=== PATIENT | male | born 1960 | race Caucasian/White ===

== ENCOUNTER 2018-10-10 05:59 | Inpatient (IN) | payer BC ==
--- NOTE | 2018-10-09 15:49 | PCM.PREANE ---
Preanesthetic Assessment - Anesthesia/Transfusion/Family Hx Anesthesia History: Prior Anesthesia Without Reaction Family History of Anesthesia Reaction: No Transfusion History: No Prior Transfusion(s) Intubation History: Unknown - Review of Systems General: No Symptoms Pulmonary: No Symptoms (Smoker: 1-2 cigarettes/day times 20 years, patient also chews on occasion/ ETOH: occasionally) Cardiovascular: No Symptoms Gastrointestinal: No Symptoms (GERD-diet controlled) Neurological: No Symptoms (Back pain lower noted.) Other: Reports: None - Physical Assessment NPO Status Date: 10/09/18 NPO Status Time: 19:00 Pulse: 95 O2 Sat by Pulse Oximetry: 96 Respiratory Rate: 16 Blood Pressure: 132/90 Temperature: 36.8 C Height: 1.8 m Weight: 81 kg ASA Class: 2 Mental Status: Alert & Oriented x3 Airway Class: Mallampati = 2 Dentition: Reports: Normal Dentition, Caries Thyro-Mental Finger Breadths: 3 Mouth Opening Finger Breadths: 3 ROM/Head Extension: Full Lungs: Clear to Auscultation, Normal Respiratory Effort Cardiovascular: Regular Rate, Regular Rhythm, No Murmurs - Lab Values: Laboratory Last Values MRSA (PCR) Negative 10/05/18 12:29 All lab values reviewed and noted and within acceptable ranges to proceed with scheduled procedure. - Imaging/EKG Impressions: EKG: SR rate= 86, probable left ventricular hypertrophy, borderline t wave abnormalities in inferior leads. CXR: negative - Allergies Allergies/Adverse Reactions: Allergies Allergy/AdvReac Type Severity Reaction Status Date / Time No Known Allergies Allergy Verified 10/07/18 09:32 - Anesthesia Plan Pre-Op Medication Ordered: Other (PreOp meds: tylenol, lyrica, oxycodone all p.o. given in preop area at 0630) - Acknowledgements Anesthesia Type Planned: Spinal (Left adductor canal block under US guidance for post operative pain control requested by Dr. Wilkinson.) Pt an Appropriate Candidate for the Planned Anesthesia: Yes Alternatives and Risks of Anesthesia Discussed w Pt/Guardian: Yes Pt/Guardian Understands and Agrees with Anesthesia Plan: Yes PreAnesthesia Questionnaire HEENT History: Reports: None Cardiovascular History: Reports: None Respiratory History: Reports: None Gastrointestinal History: Genitourinary History: Reports: None AUTOMOTIVE SALES SPECIALIST History: Reports: None Musculoskeletal History: Reports: None Neurological History: Reports: None Psychiatric History: Reports: None Endocrine/Metabolic History: Reports: None Hematologic History: Reports: None Immunologic History: Reports: None Oncologic (Cancer) History: Reports: None Dermatologic History: Reports: Other (See Below) Other Dermatologic History: 52 stitches from dog attack in 2009 - Past Surgical History Head Surgeries/Procedures: Reports: None HEENT Surgical History: Reports: None Cardiovascular Surgical History: Reports: None Respiratory Surgical History: Reports: None GI Surgical History: Reports: Hernia Repair/Other Female Surgical History: Reports: None Male Surgical History: Reports: None Endocrine Surgical History: Reports: None Neurological Surgical History: Reports: None Musculoskeletal Surgical History: Reports: Other (See Below) Other Musculoskeletal Surgeries/Procedures:: right rotator cuff repair, left knee arthroscopy Oncologic Surgical History: Reports: None Dermatological Surgical History: Reports: None - SUBSTANCE USE Smoking Status *Q: Current Every Day Smoker Tobacco Use Within Last Twelve Months: Cigarettes, Snuff/Dip Recreational Drug Use History: No - HOME MEDS Home Medications: Home Meds Acetaminophen [Tylenol Arthritis] 650 mg PO Q4H PRN 10/07/18 [History] Cholecalciferol (Vitamin D3) [Vitamin D3] 5,000 unit PO DAILY 10/07/18 [History] - CURRENT (IN HOUSE) MEDS Current Meds: Current Medications Acetaminophen (Tylenol) 975 mg PO ONETIME [facility] Stop: 10/10/18 14:00 Lactated Ringer's (Ringers, Lactated) 1,000 mls @ 125 mls/hr IV ASDIRECTED MEENU Lidocaine/Sodium Bicarbonate (Buffered Lidocaine 1% In Ns 8.4%) 0.25 ml IDERM ONETIME PRN PRN Reason: Prior to IV Start Oxycodone HCl (Oxycontin) 10 mg PO ONETIME [facility] Stop: 10/10/18 14:00 Pregabalin (Lyrica) 50 mg PO ONETIME [facility] Stop: 10/10/18 14:00 Sodium Chloride (Saline Flush) 10 ml FLUSH ASDIRECTED PRN PRN Reason: Keep Vein Open Discontinued Medications Acetaminophen (Tylenol) 975 mg PO ONETIME [facility] Stop: 10/10/18 14:00 Oxycodone HCl (Oxycontin) 10 mg PO ONETIME [facility] Stop: 10/10/18 14:00 Pregabalin (Lyrica) 50 mg PO ONETIME [facility] Stop: 10/10/18 14:00
[~2018-10-10 05:59] MED LIST: EPINEPHrine 1 MG/ML SDV ONE; Ropivacaine 0.5% 5 MG/ML 30 ML SDV ONE
[2018-10-10] MEDS ORDERED: oxyCODONE ER 10 MG TAB.ER PO SCH ×2 (06:00→07:00)
[2018-10-10] MEDS ORDERED: Pregabalin 25 MG Cap PO SCH ×2 (06:00→07:00)
[2018-10-10] MEDS ORDERED: Acetaminophen 325 MG Tab PO SCH ×2 (06:00→07:00)
[2018-10-10] MEDS ORDERED: Lidocaine 1% 14 ML ONE (06:02)
[2018-10-10] MEDS ORDERED: fentaNYL 100 MCG/2 ML SDV ONE (06:02)
[2018-10-10] MEDS ORDERED: ceFAZolin 1 GM Vial ONE ×2 (06:02→06:33)
[2018-10-10] MEDS ORDERED: Ketorolac 30 MG/ML SDV ONE (06:02)
[2018-10-10] MEDS ORDERED: Propofol 200 MG/20 ML SDV ONE ×2 (06:02→07:43)
[2018-10-10] MEDS ORDERED: Ondansetron 4 MG/2 ML SDV ONE (06:02)
[2018-10-10] MEDS ORDERED: Bupivacaine 0.75% 30 ML SDV ONE (06:02)
[2018-10-10] MEDS ORDERED: Midazolam 1 MG/ML 2 ML SDV ONE (06:03)
[2018-10-10] MEDS ORDERED: Vancomycin 1 GM SDV ONE (06:29)
[2018-10-10] MEDS ORDERED: Bupivacaine 0.25% 30 ML SDV ONE (06:30)
[2018-10-10] MEDS ORDERED: Iodine/Sodium Iodide 2% Tincture 30 ML Bottle ONE (06:30)
[2018-10-10] MEDS ORDERED: Lidocaine 1%/Sod Bicarbonate in NS 8.4% 1 ML Syringe IDERM PRN (07:00)
[2018-10-10] MEDS ORDERED: Sodium Chloride 0.9% 10 ML Syringe FLUSH PRN (07:00)
[2018-10-10] MEDS: Lactated Ringers 1,000 ML IV SCH ×2 (07:01→11:43)
[2018-10-10] MEDS ORDERED: EPINEPHrine 1 MG/ML SDV ONE (07:18)
[2018-10-10] MEDS ORDERED: Bupivacaine 0.5% 30 ML SDV ONE (07:19)
[2018-10-10] MEDS ORDERED: Ropivacaine 0.5% 5 MG/ML 30 ML SDV ONE (07:19)
[2018-10-10] MEDS ORDERED: HYDROmorphone 0.5 MG/0.5 ML Syringe IVPUSH PRN (07:26)
[2018-10-10] MEDS ORDERED: ePHEDrine 50 MG/ML SDV IVPUSH PRN (07:26)
[2018-10-10] MEDS ORDERED: diphenhydrAMINE 50 MG/ML SDV IVPUSH PRN (07:26)
[2018-10-10] MEDS ORDERED: fentaNYL 100 MCG/2 ML SDV IVPUSH PRN (07:26)
[2018-10-10] MEDS ORDERED: Ondansetron 4 MG/2 ML SDV IVPUSH PRN ×2 (07:26→09:30)
[2018-10-10] MEDS ORDERED: Phenylephrine 1 MG in Sodium Chloride 0.9% 10 ML IV SCH (07:30)
[2018-10-10] MEDS ORDERED: Phenylephrine/Normal Saline 100 MCG/ML 10 ML Syringe ONE (07:31)
[2018-10-10] MEDS ORDERED: Morphine 8 MG, EPINEPHrine 0.3 MG, Cefuroxime 750 MG, Ketorolac 30 MG, Sodium Chloride ... ONE ×5 (07:35)
[2018-10-10] MEDS ORDERED: ePHEDrine/Normal Saline 25 MG/5 ML Syringe ONE (07:56)
[2018-10-10] MEDS ORDERED: Lactated Ringers 1,000 ML ONE (07:58)
--- NOTE | 2018-10-10 08:50 | PCM.POSTAN ---
POST ANESTHESIA ASSESSMENT - MENTAL STATUS Mental Status: Alert - VITAL SIGNS Pulse Rate: 83 SaO2: 94 Resp Rate: 12 Blood Pressure: 89/66 Temperature: 36.9 C - RESPIRATORY Respiratory Status: Respiratory Rate WNL, Airway Patent, O2 Saturation Stable - CARDIOVASCULAR CV Status: Pulse Rate WNL, Blood Pressure Stable - GASTROINTESTINAL GI Status: No Symptoms - POST OP HYDRATION Hydration Status: Adequate & Stable
--- NOTE | 2018-10-10 09:20 | PCM.SN ---
- Free Text/Narrative Note: Left selective femoral nerve block at the adductor canal for post-procedure pain control under US guidance requested by Dr. Wilkinson. Time Out: 853 Start: 853 End: 903 Chart reviewed. Consent signed. Questions answered. Appropriate monitors applied. Time out performed. Left mid-shaft femur identified with ultrasound, scanning medially of femur, the femoral artery in the adductor canal visualized , and the femoral nerve located laterally to the artery. The skin was prepped lateral to the ultrasound probe with chlorahexadine times two. The 21ga 4 insulated block needle was inserted under direct ultrasound guidance into the adductor canal. 25mL of 0.5% ropivacaine with 1:200,000 epinephrine was injected circumferentially around the nerve with intermittent negative aspiration noted. Patient tolerated the procedure well. Sterile technique noted along with sterile gloves, mask, and sterile probe cover. See picture on progress note and vital signs on nurses notes. Block completed in PACU. [place] CRNA
[2018-10-10] MEDS ORDERED: Naloxone 0.4 MG/ML SDV IVPUSH PRN (09:30)
[2018-10-10] MEDS ORDERED: Sennosides 8.6 MG Tab PO PRN (09:30)
[2018-10-10] MEDS ORDERED: Magnesium Hydroxide 400 MG/5 ML Susp 30 ML Cup PO PRN (09:30)
[2018-10-10] MEDS ORDERED: Morphine 2 MG/ML Syringe IVPUSH PRN (09:30)
[2018-10-10] MEDS ORDERED: Bisacodyl 5 MG Tab PO PRN (09:30)
--- NOTE | 2018-10-10 09:33 | CR ---
Left knee: Two views of the left knee were obtained. Comparison: No previous study. Knee prosthesis is seen which appears satisfactory in alignment. Soft tissue air is seen from the surgical procedure. No acute bony abnormality is seen. Impression: 1. Satisfactory postop radiographic appearance of recently placed left knee prosthesis. Diagnostic code #2
[2018-10-10] MEDS: Ketorolac 15 MG/ML SDV IVPUSH PRN ×2 (12:48→18:50)
--- NOTE | 2018-10-10 12:51 | PCM.CONS ---
H&P History of Present Illness - General Date of Service: 10/10/18 Admit Problem/Dx: Admission Diagnosis/Problem Admission Diagnosis/Problem Osteoarthritis of knee Source of Information: Patient History Limitations: Reports: No Limitations - History of Present Illness Initial Comments - Free Text/Narative: Jordan is a 58 yo male patient of Dr. Wilkinson who is post-operative day 0 of L TKA. Hospital medicine was consulted for post-operative medical care. At this time he is stable. Pain is controlled. He denies any chest pain, shortness of breath, palpitations, nausea, or vomiting. He carries a history of: GERD. He smokes 1-2 cigarettes/day x20 years, patient also chews on occasion. He is a full code. Left Knee Pain Score (Numeric/FACES): 7 - Related Data Allergies/Adverse Reactions: Allergies Allergy/AdvReac Type Severity Reaction Status Date / Time No Known Allergies Allergy Verified 10/10/18 10:19 Home Medications: Home Meds Cholecalciferol (Vitamin D3) [Vitamin D3] 5,000 unit PO DAILY 10/07/18 [History] Acetaminophen/oxyCODONE [Percocet 325-5 MG] 1 - 2 tab PO Q6H PRN #60 tablet [Rx] Aspirin [Ecotrin] 325 mg PO BID #84 tab.ec 10/10/18 [Rx] Bisacodyl [Dulcolax] 5 mg PO DAILY PRN tablet 10/10/18 [Rx] Cyclobenzaprine [Flexeril] 10 mg PO TID PRN #40 tablet 10/10/18 [Rx] Docusate Sodium [Colace] 100 mg PO BID cap 10/10/18 [Rx] Famotidine [Pepcid] 20 mg PO Q12H tablet 10/10/18 [Rx] Magnesium Hydroxide [Milk of Magnesia] 30 ml PO BID PRN cup 10/10/18 [Rx] Nicotine [Habitrol] 7 mg TRDERM DAILY patch 10/10/18 [Rx] Remove Patch 0 ea TRDERM DAILY each 10/10/18 [Rx] Sennosides [Senna] 8.6 mg PO BID PRN tablet 10/10/18 [Rx] Past Medical History HEENT History: Reports: None Cardiovascular History: Reports: None Respiratory History: Reports: None Gastrointestinal History: Genitourinary History: Reports: None [employer]ER History: Reports: None Musculoskeletal History: Reports: None Neurological History: Reports: None Psychiatric History: Reports: None Endocrine/Metabolic History: Reports: None Hematologic History: Reports: None Immunologic History: Reports: None Oncologic (Cancer) History: Reports: None Dermatologic History: Reports: Other (See Below) Other Dermatologic History: 52 stitches from dog attack in 2010 - Past Surgical History Head Surgeries/Procedures: Reports: None HEENT Surgical History: Reports: None Cardiovascular Surgical History: Reports: None Respiratory Surgical History: Reports: None GI Surgical History: Reports: Hernia Repair/Other Male Surgical History: Reports: None Endocrine Surgical History: Reports: None Neurological Surgical History: Reports: None Musculoskeletal Surgical History: Reports: Other (See Below) Other Musculoskeletal Surgeries/Procedures:: right rotator cuff repair, left knee arthroscopy Oncologic Surgical History: Reports: None Dermatological Surgical History: Reports: None Social & Family History - Family History Family Medical History: Noncontributory - Tobacco Use Smoking Status *Q: Current Every Day Smoker Years of Tobacco use: 20 Packs/Tins Daily: 0.5 Used Tobacco, but Quit: No Tobacco Use Comment: patient states he smokes and chews and smokes a "little bit " in the morning and afternoon Second Hand Smoke Exposure: No - Caffeine Use Caffeine Use: Reports: Coffee Other Caffeine Use: 2 cups/day - Alcohol Use Days Per Week of Alcohol Use: 7 Number of Drinks Per Day: 3 Total Drinks Per Week: 21 - Recreational Drug Use Recreational Drug Use: No H&P Review of Systems - Review of Systems: Review Of Systems: See Below General: Reports: No Symptoms. Denies: Fever, Chills HEENT: Reports: No Symptoms Pulmonary: Reports: No Symptoms. Denies: Shortness of Breath, Cough Cardiovascular: Reports: No Symptoms. Denies: Chest Pain Gastrointestinal: Reports: No Symptoms. Denies: Abdominal Pain, Diarrhea, Nausea, Vomiting Genitourinary: Reports: No Symptoms. Denies: Dysuria, Frequency, Burning, Pain , Urgency Musculoskeletal: Reports: No Symptoms Skin: Reports: No Symptoms Psychiatric: Reports: No Symptoms Neurological: Reports: No Symptoms Hematologic/Lymphatic: Reports: No Symptoms Immunologic: Reports: No Symptoms Exam - Exam Exam: See Below - Vital Signs Vital Signs: Last Vital Signs Temp 98.3 F 10/10/18 09:30 Pulse 69 10/10/18 11:01 Resp 18 10/10/18 09:30 BP 88/65 L 10/10/18 11:01 Pulse Ox 95 10/10/18 11:01 Weight: 178 lb 9.191 oz - Exam Quality Assessment: DVT Prophylaxis General: Alert, Oriented, Cooperative, Mild Distress HEENT: Conjunctiva Clear, EACs Clear, EOMI, Hearing Intact, Mucosa Moist & [place] , Nares Patent, Normal Nasal Septum, Posterior Pharynx Clear, PERRLA Neck: Supple, Trachea Midline, 2 Lungs: Clear to Auscultation, Normal Respiratory Effort Cardiovascular: Regular Rate, Regular Rhythm GI/Abdominal Exam: Normal Bowel Sounds, Soft, Non-Tender, No Organomegaly, No Distention, No Abnormal Bruit, No Mass, Pelvis Stable (Male) Exam: Deferred Rectal (Males) Exam: Deferred Back Exam: Normal Inspection Extremities: Normal Inspection, Non-Tender, No Pedal Edema, Normal Capillary Refill, Limited Range of Motion (s/p LTKA) Peripheral Pulses: 2+: Posterior Tibial (L), Posterior Tibial (R), Dorsalis Pedis (L), Dorsalis Pedis (R) Skin: Warm, Dry, Intact, Other (bandage dry and intact) Neurological: Cranial Nerves Intact (grossly), Strength Equal Bilateral Neuro Extensive - Mental Status: Alert, Oriented x3, Normal Mood/Affect, Normal Cognition Psychiatric: Alert, Normal Affect, Normal Mood Consult PN Assessment/Plan POD#: 0 (1) S/P total knee arthroplasty SNOMED Code(s): 0313935890786, [id number], 7696958705937 Code(s): Z96.659 - PRESENCE OF UNSPECIFIED ARTIFICIAL KNEE JOINT Priority: High Current Visit: Yes Qualifiers: Laterality: left Qualified Code(s): Z96.652 - Presence of left artificial knee joint Problem List Initiated/Reviewed/Updated: Yes Plan: I/P: Acute: S/P left total knee arthroplasty - post-operative day 0 -DVT prophylaxis and pain management per primary care team -PT/OT -IS/RT -Monitor oxygen saturation -Titrate oxygen as needed -Vital signs stable -Monitor labs Osteoarthritis of Knee -Pain management per primary care team Tobacco Dependence -He smokes 1-2 cigarettes/day x20 years, patient also chews on occasion. -Smoking cessation counseling given -Nicotine patch Chronic: GERD Plan: CM for discharge planning GI prophylaxis: Pepcid DVT/PE prophylaxis: ASA, AYAKA hose, SCD Home medications as indicated Other orders as listed above Routine AM labs He is a full code. Thank you for allowing us to participate in the care of this patient!
[2018-10-10] MEDS: Acetaminophen/oxyCODONE 325-5 MG Tab PO PRN ×3 (14:23→22:22)
[2018-10-10] MEDS: ceFAZolin 2 GM in Premix Bag 1 BAG IV SCH ×2 (14:24→22:23)
[2018-10-10] MEDS: Nicotine 7 MG/24 Hr Patch TRDERM SCH (14:38)
[2018-10-10] MEDS: Cyclobenzaprine 10 MG Tab PO PRN ×2 (15:25→22:22)
[2018-10-10] MEDS: Docusate Sodium 100 MG Cap PO SCH (20:06)
[2018-10-10] MEDS: Famotidine 20 MG Tab PO SCH (20:06)
[2018-10-11] MEDS: Acetaminophen/oxyCODONE 325-5 MG Tab PO PRN ×4 (02:32→13:53)
[2018-10-11] MEDS: Ketorolac 15 MG/ML SDV IVPUSH PRN (05:26)
[2018-10-11] MEDS: ceFAZolin 2 GM in Premix Bag 1 BAG IV SCH (06:24)
--- NOTE | 2018-10-11 06:46 | PCM.CONSN ---
- General Info Date of Service: 10/11/18 Admission Dx/Problem (Free Text): Admission Diagnosis/Problem Admission Diagnosis/Problem Osteoarthritis of knee Subjective Update: In to see Jacob. Is sitting up in a chair. He is overall feeling well today. Pain is 3-4/10 at its worst. He has been ambulating and working with PT. Incentive Spirometry. Urinating. No concerns from nursing. He will likely go home today pending primary team decision. Functional Status: Reports: Pain Controlled, Tolerating Diet, Ambulating, Urinating, Incentive Spirometry - Review of Systems General: Reports: No Symptoms. Denies: Fever, Chills HEENT: Reports: No Symptoms Pulmonary: Reports: No Symptoms. Denies: Shortness of Breath, Cough Cardiovascular: Reports: No Symptoms. Denies: Chest Pain Gastrointestinal: Reports: No Symptoms. Denies: Abdominal Pain, Diarrhea, Nausea, Vomiting Genitourinary: Reports: No Symptoms Musculoskeletal: Reports: Joint Pain (s/p L TKA) Skin: Reports: No Symptoms Neurological: Reports: No Symptoms Psychiatric: Reports: No Symptoms - Patient Data Vitals - Most Recent: Last Vital Signs Temp 99.3 F 10/11/18 02:25 Pulse 109 H 10/11/18 02:25 Resp 20 10/11/18 02:25 BP 136/71 10/11/18 02:25 Pulse Ox 97 10/11/18 02:25 Weight - Most Recent: 185 lb 6 oz I&O - Last 24 Hours: Intake & Output 10/10/18 10/10/18 10/11/18 14:59 22:59 06:59 Intake Total 740 1510 1375 Output Total 700 1650 Balance 740 810 -275 Lab Results Last 24 Hours: Laboratory Results - last 24 hr 10/11/18 Range/Units 05:30 WBC 6.55 (4.23-9.07) K/mm3 RBC 3.93 L (4.63-6.08) M/mm3 Hgb 11.3 L (13.7-17.5) gm/L Hct 34.8 L (40.1-51.0) % MCV 88.5 (79.0-92.2) fl MCH 28.8 (25.7-32.2) pg MCHC 32.5 (32.2-35.5) g/dl RDW Std Deviation 38.0 (35.1-43.9) fL Plt Count 376 H (163-337) K/mm3 MPV 10.0 (9.4-12.3) fl Med Orders - Current: Current Medications Aspirin (Ecotrin) 325 mg PO BID [facility] Bisacodyl (Dulcolax) 5 mg PO DAILY PRN PRN Reason: Constipation Cholecalciferol (Vitamin D3) 5,000 unit PO DAILY [facility] Cyclobenzaprine HCl (Flexeril) 10 mg PO TID PRN PRN Reason: Spasms Last Admin: 10/10/18 22:22 Dose: 10 mg Docusate Sodium (Colace) 100 mg PO BID [facility] Last Admin: 10/10/18 20:06 Dose: 100 mg Famotidine (Pepcid) 20 mg PO Q12H [facility] Last Admin: 10/10/18 20:06 Dose: 20 mg Cefazolin Sodium/Dextrose 2 gm (/ Premix) 50 mls @ 100 mls/hr IV Q8H [facility] Stop: 10/11/18 07:29 Last Admin: 10/11/18 06:24 Dose: 100 mls/hr Magnesium Hydroxide (Milk Of Magnesia) 30 ml PO BID PRN PRN Reason: Constipation Miscellaneous Information (Remove Patch) 0 ea TRDERM DAILY [facility] Morphine Sulfate (Morphine) 2 mg IVPUSH Q2H PRN PRN Reason: Breakthrough Pain Naloxone HCl (Narcan) 0.1 mg IVPUSH Q5M PRN PRN Reason: Oversedation Nicotine (Habitrol) 7 mg TRDERM DAILY [facility] Last Admin: 10/10/18 14:38 Dose: Not Given Ondansetron HCl (Zofran) 4 mg IVPUSH Q6H PRN PRN Reason: Nausea/Vomiting Oxycodone/Acetaminophen (Percocet 325-5 Mg) 1 - 2 tab PO Q4H PRN PRN Reason: Pain Last Admin: 10/11/18 06:27 Dose: 2 tab Senna (Senna) 8.6 mg PO BID PRN PRN Reason: Constipation Last Admin: 10/11/18 06:27 Dose: 8.6 mg Discontinued Medications Acetaminophen (Tylenol) 975 mg PO ONETIME [facility] Stop: 10/10/18 14:00 Acetaminophen (Tylenol) 975 mg PO ONETIME [facility] Stop: 10/10/18 14:00 Last Admin: 10/10/18 06:29 Dose: 975 mg Bupivacaine HCl (Sensorcaine-Mpf 0.75%) Confirm Administered Dose 30 ml .ROUTE .STK-MED ONE Stop: 10/10/18 06:03 Bupivacaine HCl (Marcaine 0.25%) Confirm Administered Dose 30 ml .ROUTE .STK- MED ONE Stop: 10/10/18 06:31 Last Admin: 10/10/18 08:14 Dose: 30 ml Bupivacaine HCl (Marcaine 0.5%) Confirm Administered Dose 30 ml .ROUTE .STK-MED ONE Stop: 10/10/18 07:20 Cefazolin Sodium (Ancef) Confirm Administered Dose 2 gm .ROUTE .STK-MED ONE Stop: 10/10/18 06:03 Last Admin: 10/10/18 08:09 Dose: 2 gm Cefazolin Sodium (Ancef) Confirm Administered Dose 2 gm .ROUTE .STK-MED ONE Stop: 10/10/18 06:34 Morphine Sulfate 8 mg/Epinephrine HCl 0.3 mg/Cefuroxime Sodium 750 mg/Ketorolac Tromethamine 30 mg/Sodium Chloride 27.9 ml 0 mg .XX ONETIME ONE Stop: 10/10/18 07:36 Last Admin: 10/10/18 08:13 Dose: 788.3 mg Diphenhydramine HCl (Benadryl) 25 mg IVPUSH Q6H PRN PRN Reason: pruritis Stop: 10/10/18 10:00 Ephedrine Sulfate (Ephedrine Sulfate) 5 mg IVPUSH ASDIRECTED PRN PRN Reason: Hypotension Stop: 10/10/18 10:00 Ephedrine Sulfate (Ephedrine In Ns) Confirm Administered Dose 25 mg .ROUTE .STK- MED ONE Stop: 10/10/18 07:57 Epinephrine HCl (Adrenalin) Confirm Administered Dose 1 mg .ROUTE .STK-MED ONE Stop: 10/10/18 05:33 Epinephrine HCl (Adrenalin) Confirm Administered Dose 1 mg .ROUTE .STK-MED ONE Stop: 10/10/18 07:19 Fentanyl (Sublimaze) Confirm Administered Dose 100 mcg .ROUTE .STK-MED ONE Stop: 10/10/18 06:03 Fentanyl (Sublimaze) 50 mcg IVPUSH Q5M PRN PRN Reason: Pain Stop: 10/10/18 10:00 Hydromorphone HCl (Dilaudid) 0.5 mg IVPUSH Q15M PRN PRN Reason: Pain (severe 7-10) Stop: 10/10/18 10:00 Lactated Ringer's (Ringers, Lactated) 1,000 mls @ 125 mls/hr IV ASDIRECTED MEENU Stop: 10/10/18 23:00 Last Admin: 10/10/18 11:43 Dose: 125 mls/hr Lidocaine HCl (Xylocaine-Mpf 1%) Confirm Administered Dose 14 mls @ as directed .ROUTE .STK-MED ONE Stop: 10/10/18 06:03 Phenylephrine HCl 1 mg/ Sodium (Chloride) 10.1 mls @ 1 mls/sec IV TITRATE MEENU; Protocol Stop: 10/10/18 10:00 Lactated Ringer's (Ringers, Lactated) Confirm Administered Dose 1,000 mls @ as directed .ROUTE .STK-MED ONE Stop: 10/10/18 07:59 Iodine (Iodine 2% Mild Tincture) Confirm Administered Dose 30 ml .ROUTE .STK- MED ONE Stop: 10/10/18 06:31 Last Admin: 10/10/18 08:06 Dose: 18 ml Ketorolac Tromethamine (Toradol) Confirm Administered Dose 30 mg .ROUTE .STK- MED ONE Stop: 10/10/18 06:03 Ketorolac Tromethamine (Toradol) 15 mg IVPUSH Q6H PRN PRN Reason: Pain Last Admin: 10/11/18 05:26 Dose: 15 mg Lidocaine/Sodium Bicarbonate (Buffered Lidocaine 1% In Ns 8.4%) 0.25 ml IDERM ONETIME PRN PRN Reason: Prior to IV Start Stop: 10/10/18 18:00 Last Admin: 10/10/18 06:45 Dose: 0.25 ml Midazolam HCl (Versed 1 Mg/Ml) Confirm Administered Dose 2 mg .ROUTE .STK-MED ONE Stop: 10/10/18 06:04 Ondansetron HCl (Zofran) Confirm Administered Dose 4 mg .ROUTE .STK-MED ONE Stop: 10/10/18 06:03 Ondansetron HCl (Zofran) 4 mg IVPUSH ONETIME PRN PRN Reason: Nausea/Vomiting Stop: 10/10/18 10:00 Oxycodone HCl (Oxycontin) 10 mg PO ONETIME [facility] Stop: 10/10/18 14:00 Oxycodone HCl (Oxycontin) 10 mg PO ONETIME [facility] Stop: 10/10/18 14:00 Last Admin: 10/10/18 06:28 Dose: 10 mg Phenylephrine HCl (Phenylephrine In Ns 100 Mcg/Ml) Confirm Administered Dose 1 mg .ROUTE .STK-MED ONE Stop: 10/10/18 07:32 Pregabalin (Lyrica) 50 mg PO ONETIME [facility] Stop: 10/10/18 14:00 Pregabalin (Lyrica) 50 mg PO ONETIME [facility] Stop: 10/10/18 14:00 Last Admin: 10/10/18 06:27 Dose: 50 mg Propofol (Diprivan 20 Ml) Confirm Administered Dose 400 mg .ROUTE .STK-MED ONE Stop: 10/10/18 06:03 Propofol (Diprivan 20 Ml) Confirm Administered Dose 200 mg .ROUTE .STK-MED ONE Stop: 10/10/18 07:44 Ropivacaine (Naropin 0.5%) Confirm Administered Dose 30 ml .ROUTE .STK-MED ONE Stop: 10/10/18 05:33 Ropivacaine (Naropin 0.5%) Confirm Administered Dose 30 ml .ROUTE .STK-MED ONE Stop: 10/10/18 07:20 Sodium Chloride (Saline Flush) 10 ml FLUSH ASDIRECTED PRN PRN Reason: Keep Vein Open Stop: 10/10/18 18:00 Tranexamic Acid (Cyklokapron) Confirm Administered Dose 1,000 mg .ROUTE .STK- MED ONE Stop: 10/10/18 06:30 Last Admin: 10/10/18 08:25 Dose: 1,000 mg Vancomycin HCl (Vancomycin) Confirm Administered Dose 1 gm .ROUTE .STK-MED ONE Stop: 10/10/18 06:30 Last Admin: 10/10/18 08:16 Dose: 1 gm - Exam Quality Assessment: DVT Prophylaxis General: Alert, Oriented, Cooperative, No Acute Distress HEENT: Pupils Equal, Pupils Reactive, EOMI, Mucous Membr. Moist/[place] Neck: Supple Lungs: Clear to Auscultation, Normal Respiratory Effort Cardiovascular: Regular Rate, Regular Rhythm GI/Abdominal Exam: Normal Bowel Sounds, Soft, Non-Tender, No Organomegaly, No Distention, No Abnormal Bruit, No Mass, Pelvis Stable (Male) Exam: Deferred Back Exam: Normal Inspection Extremities: Normal Inspection, Non-Tender, No Pedal Edema, Normal Capillary Refill, Limited Range of Motion (s/p LTKA) Peripheral Pulses: 2+: Posterior Tibial (L), Posterior Tibial (R), Dorsalis Pedis (L), Dorsalis Pedis (R) Skin: Warm, Dry, Intact Wound/Incisions: Healing Well, Dressing Dry and Intact, No Drainage Neurological: No New Focal Deficit Psy/Mental Status: Alert, Normal Affect, Normal Mood Consult PN Assessment/Plan POD#: 1 (1) S/P total knee arthroplasty SNOMED Code(s): 6764837215876, [id number], [id number] Code(s): Z96.659 - PRESENCE OF UNSPECIFIED ARTIFICIAL KNEE JOINT Priority: High Current Visit: Yes Qualifiers: Laterality: left Qualified Code(s): Z96.652 - Presence of left artificial knee joint Problem List Initiated/Reviewed/Updated: Yes My Orders Last 24 Hours: My Active Orders 10/10/18 13:00 Nicotine [Habitrol] 7 mg TRDERM DAILY 10/11/18 09:00 Remove Patch 0 ea TRDERM DAILY Plan: I/P: Acute: S/P left total knee arthroplasty - post-operative day 1 -DVT prophylaxis and pain management per primary care team -PT/OT -IS/RT -Monitor oxygen saturation -Titrate oxygen as needed -Vital signs stable -Monitor labs Hgb 11.3 Osteoarthritis of Knee -Pain management per primary care team Tobacco Dependence -He smokes 1-2 cigarettes/day x20 years, patient also chews on occasion. -Smoking cessation counseling given -Nicotine patch Chronic: GERD Plan: CM for discharge planning GI prophylaxis: Pepcid DVT/PE prophylaxis: ASA, AYAKA hose, SCD Home medications as indicated Other orders as listed above Routine AM labs He is a full code. Thank you for allowing us to participate in the care of this patient! From a Hospitalist standpoint, the pt is ready for discharge pending primary team decision.
--- NOTE | 2018-10-11 08:10 | PCM.SURGPN ---
- General Info Date of Service: 10/11/18 POD#: 1 Functional Status: Reports: Pain Controlled, Tolerating Diet, Ambulating, Urinating, Incentive Spirometry - Review of Systems Musculoskeletal: Reports: Other (The pt states he was walking in the halls this morning.) - Patient Data Vitals - Most Recent: Last Vital Signs Temp 98.1 F 10/11/18 07:39 Pulse 104 H 10/11/18 07:39 Resp 16 10/11/18 07:39 BP 114/75 10/11/18 07:39 Pulse Ox 96 10/11/18 07:39 Weight - Most Recent: 185 lb 6 oz I&O - Last 24 Hours: Intake & Output 10/10/18 10/11/18 10/11/18 22:59 06:59 14:59 Intake Total 1510 1375 Output Total 700 1650 Balance 810 -275 Lab Results Last 24 Hrs: Laboratory Results - last 24 hr 10/11/18 10/11/18 Range/Units 05:30 05:30 WBC 6.55 (4.23-9.07) K/mm3 RBC 3.93 L (4.63-6.08) M/mm3 Hgb 11.3 L (13.7-17.5) gm/L Hct 34.8 L (40.1-51.0) % MCV 88.5 (79.0-92.2) fl MCH 28.8 (25.7-32.2) pg MCHC 32.5 (32.2-35.5) g/dl RDW Std Deviation 38.0 (35.1-43.9) fL Plt Count 376 H (163-337) K/mm3 MPV 10.0 (9.4-12.3) fl Sodium 134 L (136-145) mEq/L Potassium 4.2 (3.5-5.1) mEq/L Chloride 99 (98-107) mEq/L Carbon Dioxide 28 (21-32) mEq/L Anion Gap 11.2 (5-15) BUN 15 (7-18) mg/dL Creatinine 1.0 (0.7-1.3) mg/dL Est Cr Clr Drug Dosing 84.71 mL/min Estimated GFR (MDRD) > 60 (>60) mL/min BUN/Creatinine Ratio 15.0 (14-18) Glucose 124 H (74-106) mg/dL Calcium 8.8 (8.5-10.1) mg/dL Total Bilirubin 0.7 (0.2-1.0) mg/dL AST 11 L (15-37) U/L ALT 21 (16-63) U/L Alkaline Phosphatase 52 (46-116) U/L Total Protein 6.1 L (6.4-8.2) g/dl Albumin 2.7 L (3.4-5.0) g/dl Globulin 3.4 gm/dL Albumin/Globulin Ratio 0.8 L (1-2) Med Orders - Current: Current Medications Aspirin (Ecotrin) 325 mg PO BID [facility] Bisacodyl (Dulcolax) 5 mg PO DAILY PRN PRN Reason: Constipation Cholecalciferol (Vitamin D3) 5,000 unit PO DAILY [facility] Cyclobenzaprine HCl (Flexeril) 10 mg PO TID PRN PRN Reason: Spasms Last Admin: 10/10/18 22:22 Dose: 10 mg Docusate Sodium (Colace) 100 mg PO BID [facility] Last Admin: 10/10/18 20:06 Dose: 100 mg Famotidine (Pepcid) 20 mg PO Q12H [facility] Last Admin: 10/10/18 20:06 Dose: 20 mg Magnesium Hydroxide (Milk Of Magnesia) 30 ml PO BID PRN PRN Reason: Constipation Miscellaneous Information (Remove Patch) 0 ea TRDERM DAILY [facility] Morphine Sulfate (Morphine) 2 mg IVPUSH Q2H PRN PRN Reason: Breakthrough Pain Naloxone HCl (Narcan) 0.1 mg IVPUSH Q5M PRN PRN Reason: Oversedation Nicotine (Habitrol) 7 mg TRDERM DAILY [facility] Last Admin: 10/10/18 14:38 Dose: Not Given Ondansetron HCl (Zofran) 4 mg IVPUSH Q6H PRN PRN Reason: Nausea/Vomiting Oxycodone/Acetaminophen (Percocet 325-5 Mg) 1 - 2 tab PO Q4H PRN PRN Reason: Pain Last Admin: 10/11/18 06:27 Dose: 2 tab Senna (Senna) 8.6 mg PO BID PRN PRN Reason: Constipation Last Admin: 10/11/18 06:27 Dose: 8.6 mg Discontinued Medications Acetaminophen (Tylenol) 975 mg PO ONETIME [facility] Stop: 10/10/18 14:00 Acetaminophen (Tylenol) 975 mg PO ONETIME [facility] Stop: 10/10/18 14:00 Last Admin: 10/10/18 06:29 Dose: 975 mg Bupivacaine HCl (Sensorcaine-Mpf 0.75%) Confirm Administered Dose 30 ml .ROUTE .STK-MED ONE Stop: 10/10/18 06:03 Bupivacaine HCl (Marcaine 0.25%) Confirm Administered Dose 30 ml .ROUTE .STK- MED ONE Stop: 10/10/18 06:31 Last Admin: 10/10/18 08:14 Dose: 30 ml Bupivacaine HCl (Marcaine 0.5%) Confirm Administered Dose 30 ml .ROUTE .STK-MED ONE Stop: 10/10/18 07:20 Cefazolin Sodium (Ancef) Confirm Administered Dose 2 gm .ROUTE .STK-MED ONE Stop: 10/10/18 06:03 Last Admin: 10/10/18 08:09 Dose: 2 gm Cefazolin Sodium (Ancef) Confirm Administered Dose 2 gm .ROUTE .STK-MED ONE Stop: 10/10/18 06:34 Morphine Sulfate 8 mg/Epinephrine HCl 0.3 mg/Cefuroxime Sodium 750 mg/Ketorolac Tromethamine 30 mg/Sodium Chloride 27.9 ml 0 mg .XX ONETIME ONE Stop: 10/10/18 07:36 Last Admin: 10/10/18 08:13 Dose: 788.3 mg Diphenhydramine HCl (Benadryl) 25 mg IVPUSH Q6H PRN PRN Reason: pruritis Stop: 10/10/18 10:00 Ephedrine Sulfate (Ephedrine Sulfate) 5 mg IVPUSH ASDIRECTED PRN PRN Reason: Hypotension Stop: 10/10/18 10:00 Ephedrine Sulfate (Ephedrine In Ns) Confirm Administered Dose 25 mg .ROUTE .STK- MED ONE Stop: 10/10/18 07:57 Epinephrine HCl (Adrenalin) Confirm Administered Dose 1 mg .ROUTE .STK-MED ONE Stop: 10/10/18 05:33 Epinephrine HCl (Adrenalin) Confirm Administered Dose 1 mg .ROUTE .STK-MED ONE Stop: 10/10/18 07:19 Fentanyl (Sublimaze) Confirm Administered Dose 100 mcg .ROUTE .STK-MED ONE Stop: 10/10/18 06:03 Fentanyl (Sublimaze) 50 mcg IVPUSH Q5M PRN PRN Reason: Pain Stop: 10/10/18 10:00 Hydromorphone HCl (Dilaudid) 0.5 mg IVPUSH Q15M PRN PRN Reason: Pain (severe 7-10) Stop: 10/10/18 10:00 Lactated Ringer's (Ringers, Lactated) 1,000 mls @ 125 mls/hr IV ASDIRECTED [facility] Stop: 10/10/18 23:00 Last Admin: 10/10/18 11:43 Dose: 125 mls/hr Lidocaine HCl (Xylocaine-Mpf 1%) Confirm Administered Dose 14 mls @ as directed .ROUTE .STK-MED ONE Stop: 10/10/18 06:03 Cefazolin Sodium/Dextrose 2 gm (/ Premix) 50 mls @ 100 mls/hr IV Q8H [facility] Stop: 10/11/18 07:29 Last Admin: 10/11/18 06:24 Dose: 100 mls/hr Phenylephrine HCl 1 mg/ Sodium (Chloride) 10.1 mls @ 1 mls/sec IV TITRATE [facility]; Protocol Stop: 10/10/18 10:00 Lactated Ringer's (Ringers, Lactated) Confirm Administered Dose 1,000 mls @ as directed .ROUTE .STK-MED ONE Stop: 10/10/18 07:59 Iodine (Iodine 2% Mild Tincture) Confirm Administered Dose 30 ml .ROUTE .STK- MED ONE Stop: 10/10/18 06:31 Last Admin: 10/10/18 08:06 Dose: 18 ml Ketorolac Tromethamine (Toradol) Confirm Administered Dose 30 mg .ROUTE .STK- MED ONE Stop: 10/10/18 06:03 Ketorolac Tromethamine (Toradol) 15 mg IVPUSH Q6H PRN PRN Reason: Pain Last Admin: 10/11/18 05:26 Dose: 15 mg Lidocaine/Sodium Bicarbonate (Buffered Lidocaine 1% In Ns 8.4%) 0.25 ml IDERM ONETIME PRN PRN Reason: Prior to IV Start Stop: 10/10/18 18:00 Last Admin: 10/10/18 06:45 Dose: 0.25 ml Midazolam HCl (Versed 1 Mg/Ml) Confirm Administered Dose 2 mg .ROUTE .ST-MED ONE Stop: 10/10/18 06:04 Ondansetron HCl (Zofran) Confirm Administered Dose 4 mg .ROUTE .ST-MED ONE Stop: 10/10/18 06:03 Ondansetron HCl (Zofran) 4 mg IVPUSH ONETIME PRN PRN Reason: Nausea/Vomiting Stop: 10/10/18 10:00 Oxycodone HCl (Oxycontin) 10 mg PO ONETIME [facility] Stop: 10/10/18 14:00 Oxycodone HCl (Oxycontin) 10 mg PO ONETIME [facility] Stop: 10/10/18 14:00 Last Admin: 10/10/18 06:28 Dose: 10 mg Phenylephrine HCl (Phenylephrine In Ns 100 Mcg/Ml) Confirm Administered Dose 1 mg .ROUTE .ST-MED ONE Stop: 10/10/18 07:32 Pregabalin (Lyrica) 50 mg PO ONETIME [facility] Stop: 10/10/18 14:00 Pregabalin (Lyrica) 50 mg PO ONETIME [facility] Stop: 10/10/18 14:00 Last Admin: 10/10/18 06:27 Dose: 50 mg Propofol (Diprivan 20 Ml) Confirm Administered Dose 400 mg .ROUTE .STK-MED ONE Stop: 10/10/18 06:03 Propofol (Diprivan 20 Ml) Confirm Administered Dose 200 mg .ROUTE .ST-MED ONE Stop: 10/10/18 07:44 Ropivacaine (Naropin 0.5%) Confirm Administered Dose 30 ml .ROUTE .ST-MED ONE Stop: 10/10/18 05:33 Ropivacaine (Naropin 0.5%) Confirm Administered Dose 30 ml .ROUTE .ST-MED ONE Stop: 10/10/18 07:20 Sodium Chloride (Saline Flush) 10 ml FLUSH ASDIRECTED PRN PRN Reason: Keep Vein Open Stop: 10/10/18 18:00 Tranexamic Acid (Cyklokapron) Confirm Administered Dose 1,000 mg .ROUTE .STK- MED ONE Stop: 10/10/18 06:30 Last Admin: 10/10/18 08:25 Dose: 1,000 mg Vancomycin HCl (Vancomycin) Confirm Administered Dose 1 gm .ROUTE .STK-MED ONE Stop: 10/10/18 06:30 Last Admin: 10/10/18 08:16 Dose: 1 gm - Exam Wound/Incisions: Dressing Dry and Intact General: Alert, Cooperative, No Acute Distress Lungs: Normal Respiratory Effort Extremities: Other (NVS intact for BLE. Shawna's negative for BLE.) - Problem List Review Problem List Initiated/Reviewed/Updated: Yes - My Orders Last 24 Hours: Active Orders 24 hr Category Date Time Status Ready for Discharge [RC] PER UNIT ROUTINE Care 10/11/18 08:08 Ordered Regular Diet [DIET] Diet 10/10/18 Lunch Active Acetaminophen/oxyCODONE [Percocet 325-5 MG] Med 10/10/18 09:30 Active 1 - 2 tab PO Q4H PRN Aspirin [Ecotrin] Med 10/11/18 09:00 Active 325 mg PO BID Bisacodyl [Dulcolax] Med 10/10/18 09:30 Active 5 mg PO DAILY PRN Cholecalciferol (Vitamin D3) [Vitamin D3] Med 10/11/18 09:00 Active 5,000 unit PO DAILY Cyclobenzaprine [Flexeril] Med 10/10/18 09:30 Active 10 mg PO TID PRN Docusate Sodium [Colace] Med 10/10/18 21:00 Active 100 mg PO BID Famotidine [Pepcid] Med 10/10/18 21:00 Active 20 mg PO Q12H Magnesium Hydroxide [Milk of Magnesia] Med 10/10/18 09:30 Active 30 ml PO BID PRN Morphine Med 10/10/18 09:30 Active 2 mg IVPUSH Q2H PRN Naloxone [Narcan] Med 10/10/18 09:30 Active 0.1 mg IVPUSH Q5M PRN Nicotine [Habitrol] Med 10/10/18 13:00 Active 7 mg TRDERM DAILY Ondansetron [Zofran] Med 10/10/18 09:30 Active 4 mg IVPUSH Q6H PRN Remove Patch Med 10/11/18 09:00 Active 0 ea TRDERM DAILY Sennosides [Senna] Med 10/10/18 09:30 Active 8.6 mg PO BID PRN Medication Orders Aspirin (Ecotrin) 325 mg PO BID [facility] Bisacodyl (Dulcolax) 5 mg PO DAILY PRN PRN Reason: Constipation Cholecalciferol (Vitamin D3) 5,000 unit PO DAILY [facility] Cyclobenzaprine HCl (Flexeril) 10 mg PO TID PRN PRN Reason: Spasms Last Admin: 10/10/18 22:22 Dose: 10 mg Admin: 10/10/18 15:25 Dose: 10 mg Docusate Sodium (Colace) 100 mg PO BID [facility] Last Admin: 10/10/18 20:06 Dose: 100 mg Famotidine (Pepcid) 20 mg PO Q12H [facility] Last Admin: 10/10/18 20:06 Dose: 20 mg Magnesium Hydroxide (Milk Of Magnesia) 30 ml PO BID PRN PRN Reason: Constipation Miscellaneous Information (Remove Patch) 0 ea TRDERM DAILY [facility] Morphine Sulfate (Morphine) 2 mg IVPUSH Q2H PRN PRN Reason: Breakthrough Pain Naloxone HCl (Narcan) 0.1 mg IVPUSH Q5M PRN PRN Reason: Oversedation Nicotine (Habitrol) 7 mg TRDERM DAILY [facility] Last Admin: 10/10/18 14:38 Dose: Not Given Ondansetron HCl (Zofran) 4 mg IVPUSH Q6H PRN PRN Reason: Nausea/Vomiting Oxycodone/Acetaminophen (Percocet 325-5 Mg) 1 - 2 tab PO Q4H PRN PRN Reason: Pain Last Admin: 10/11/18 06:27 Dose: 2 tab Admin: 10/11/18 02:32 Dose: 2 tab Admin: 10/10/18 22:22 Dose: 2 tab Admin: 10/10/18 18:11 Dose: 2 tab Admin: 10/10/18 14:23 Dose: 2 tab Senna (Senna) 8.6 mg PO BID PRN PRN Reason: Constipation Last Admin: 10/11/18 06:27 Dose: 8.6 mg - Assessment Assessment (Free Text/Narrative):: POD#1 - left TKA - Plan Plan (Free Text/Narrative):: 1. Hgb 11.3. 2. Discharge to home today. 3. Outpatient therapy. 4. 325mg ASA PO BID, frequent mobility, TEDs. The pt's case was discussed with Dr. Wilkinson.
--- NOTE | 2018-10-11 08:56 | PCM48HPAN ---
Post Anesthesia Note - EVALUATION WITHIN 48HRS OF ANESTHETIC Vital Signs in Normal Range: Yes Patient Participated in Evaluation: Yes Respiratory Function Stable: Yes Airway Patent: Yes Cardiovascular Function Stable: Yes Hydration Status Stable: Yes Pain Control Satisfactory: Yes (score 6-7 all night- taking po pain meds) Nausea and Vomiting Control Satisfactory: Yes Mental Status Recovered: Yes Pulse Rate: 104 Resp Rate: 16 Temperature: 98.1 F Blood Pressure: 114/75
[2018-10-11] MEDS ORDERED: Cholecalciferol (Vitamin D3) 5,000 UNIT Tab PO SCH (09:00)
[2018-10-11] MEDS ORDERED: Aspirin 325 MG Tab.EC PO SCH (09:00)
[2018-10-11] MEDS: Cyclobenzaprine 10 MG Tab PO PRN (09:01)
[2018-10-11] MEDS: Docusate Sodium 100 MG Cap PO SCH (09:01)
[2018-10-11] MEDS: Famotidine 20 MG Tab PO SCH (09:01)
[2018-10-11] MEDS: Nicotine 7 MG/24 Hr Patch TRDERM SCH (10:01)
[2018-10-11] MEDS ORDERED: Ketorolac 15 MG/ML SDV IVPUSH ONE (10:20)
[2018-10-11] MEDS ORDERED: oxyCODONE 5 MG Tab PO ONE (10:20)
--- NOTE | 2018-10-11 12:35 | PCM.DCSUM1 ---
Discharge Summary - Hospital Course Brief History: Jordan is a 58 yo male who underwent left TKA with Dr. Wilkinson on . The procedure was completed under spinal anesthesia with sedation. The pt tolerated the procedure well and was admitted to the Medical-Surgical Unit. Medical management was provided by the Hospitalist service. The pt's Hospital course was uneventful. The pt's Hgb on POD#1 was 11.3. On POD#1, 325mg ASA BID was initiated for VTE prophylaxis. SCDs and TEDs were also ordered. A Mepilex dressing was placed at the incision site at the time of surgery and remained clean and dry. The pt participated in P.T. and O.T. and progressed well. The pt was allowed to WBAT. On POD#1, the pt was deemed appropriate to discharge to home with his . - Discharge Data Discharge Date: 10/11/18 Discharge Disposition: Home, Self-Care 01 Condition: Good - Patient Summary/Data Consults: Consultations 10/10/18 06:35 OT Evaluation and Treatment [CONS] Routine PT Evaluation and Treatment [CONS] Routine 10/10/18 06:37 Consult to Physician [CONS] Routine - Patient Instructions Diet: Usual Diet as Tolerated Activity: Apply Ice, As Tolerated, Elevate Extremity, Full Weight Bearing Driving: Do Not Drive Showering/Bathing: May Shower Wound/Incision Care: Keep Operative Site/Wound Site Clean and Dry, Do NOT Change Dressing Notify Provider of: Fever, Increased Pain, Swelling and Redness, Drainage, Nausea and/or Vomiting Other/Special Instructions: Please get up and moving around EVERY HOUR while awake. This helps to prevent blood clots. Please use your walker and have help with mobility as needed. Take a short walk in your home every hour while awake. Please take 325mg Aspirin TWICE daily. The aspirin is being used for blood clot prevention and not for pain management so please do not miss a dose of the medication. You could use a medication like Zantac or Pepcid and a medication like Prilosec or Nexium to protect your stomach while you are using the aspirin. At home, please complete the exercises that you learned during the Hospital stay. Schedule for physical therapy. Use the pain medication as needed. The medication may cause drowsiness and constipation. Contact your primary care provider for instructions if you are constipated. You may use a stool softener like docusate sodium or Colace 100mg twice daily and/or a laxative like Miralax daily for constipation. Increase your water and fiber intake while you are using the pain medication. Please try to wean from use of the pain medication as soon as able. Please do not use other medications that may cause drowsiness (other pain medications, anxiety pills, cold medications, sleeping pills, etc) while using the prescription pain medication. Do not use alcohol while using the pain medication. Wear the AYAKA hose during the day and you may remove these at night. Elevate the limb to decrease swelling. Place ice to the area often. Place a towel between your skin and the blue pad. Use the incentive spirometer often. Take deep breaths throughout the day. Please keep the dressing in place until follow-up. Notify the Clinic if the dressing becomes saturated. Increase your protein intake while you are healing. If you have diabetes, please closely monitor your blood sugars and notify your primary care provider with abnormal values. Elevated blood sugars increases the risk of infection. Call the Clinic with questions or concerns - [phone]. - Discharge Plan *PRESCRIPTION DRUG MONITORING PROGRAM REVIEWED*: No *COPY OF PRESCRIPTION DRUG MONITORING REPORT IN PATIENT DIAMANTE: No Prescriptions/Med Rec: Acetaminophen/oxyCODONE [Percocet 325-5 MG] 1 - 2 tab PO Q6H PRN #60 tablet PRN Reason: Pain Aspirin [Ecotrin] 325 mg PO BID #84 tab.ec Cyclobenzaprine [Flexeril] 10 mg PO TID PRN #40 tablet PRN Reason: Spasms Home Medications: Home Meds Cholecalciferol (Vitamin D3) [Vitamin D3] 5,000 unit PO DAILY 10/07/18 [History] Acetaminophen/oxyCODONE [Percocet 325-5 MG] 1 - 2 tab PO Q6H PRN #60 tablet [Rx] Aspirin [Ecotrin] 325 mg PO BID #84 tab.ec 10/10/18 [Rx] Bisacodyl [Dulcolax] 5 mg PO DAILY PRN tablet 10/10/18 [Rx] Cyclobenzaprine [Flexeril] 10 mg PO TID PRN #40 tablet 10/10/18 [Rx] Docusate Sodium [Colace] 100 mg PO BID cap 10/10/18 [Rx] Famotidine [Pepcid] 20 mg PO Q12H tablet 10/10/18 [Rx] Magnesium Hydroxide [Milk of Magnesia] 30 ml PO BID PRN cup 10/10/18 [Rx] Nicotine [Habitrol] 7 mg TRDERM DAILY patch 10/10/18 [Rx] Remove Patch 0 ea TRDERM DAILY each 10/10/18 [Rx] Sennosides [Senna] 8.6 mg PO BID PRN tablet 10/10/18 [Rx] Patient Handouts: Total Knee Replacement, Care After, Surgical Site Infections FAQs - CARRILLO, Steps to Quit Smoking Referrals: Sol Dubon PA-C [Physician Physician Asst] - (Follow up at [facility] on: 11/01/18 at 10:00AM 11/08/18 at 10:00AM) - Discharge Summary/Plan Comment DC Time >30 min.: No - Patient Data Vitals - Most Recent: Last Vital Signs Temp 98.1 F 10/11/18 08:56 Pulse 104 H 10/11/18 08:56 Resp 16 10/11/18 08:56 BP 114/75 10/11/18 08:56 Pulse Ox 96 10/11/18 07:39 Weight - Most Recent: 185 lb 6 oz I&O - Last 24 hours: Intake & Output 10/10/18 10/11/18 10/11/18 22:59 06:59 14:59 Intake Total 1510 1375 300 Output Total 700 1650 Balance 810 -275 300 Lab Results - Last 24 hrs: Laboratory Results - last 24 hr 10/11/18 10/11/18 Range/Units 05:30 05:30 WBC 6.55 (4.23-9.07) K/mm3 RBC 3.93 L (4.63-6.08) M/mm3 Hgb 11.3 L (13.7-17.5) gm/L Hct 34.8 L (40.1-51.0) % MCV 88.5 (79.0-92.2) fl MCH 28.8 (25.7-32.2) pg MCHC 32.5 (32.2-35.5) g/dl RDW Std Deviation 38.0 (35.1-43.9) fL Plt Count 376 H (163-337) K/mm3 MPV 10.0 (9.4-12.3) fl Sodium 134 L (136-145) mEq/L Potassium 4.2 (3.5-5.1) mEq/L Chloride 99 (98-107) mEq/L Carbon Dioxide 28 (21-32) mEq/L Anion Gap 11.2 (5-15) BUN 15 (7-18) mg/dL Creatinine 1.0 (0.7-1.3) mg/dL Est Cr Clr Drug Dosing 84.71 mL/min Estimated GFR (MDRD) > 60 (>60) mL/min BUN/Creatinine Ratio 15.0 (14-18) Glucose 124 H (74-106) mg/dL Calcium 8.8 (8.5-10.1) mg/dL Total Bilirubin 0.7 (0.2-1.0) mg/dL AST 11 L (15-37) U/L ALT 21 (16-63) U/L Alkaline Phosphatase 52 (46-116) U/L Total Protein 6.1 L (6.4-8.2) g/dl Albumin 2.7 L (3.4-5.0) g/dl Globulin 3.4 gm/dL Albumin/Globulin Ratio 0.8 L (1-2) Med Orders - Current: Current Medications Aspirin (Ecotrin) 325 mg PO BID [facility] Last Admin: 10/11/18 09:01 Dose: 325 mg Bisacodyl (Dulcolax) 5 mg PO DAILY PRN PRN Reason: Constipation Cholecalciferol (Vitamin D3) 5,000 unit PO DAILY [facility] Last Admin: 10/11/18 09:01 Dose: 5,000 unit Cyclobenzaprine HCl (Flexeril) 10 mg PO TID PRN PRN Reason: Spasms Last Admin: 10/11/18 09:01 Dose: 10 mg Docusate Sodium (Colace) 100 mg PO BID [facility] Last Admin: 10/11/18 09:01 Dose: 100 mg Famotidine (Pepcid) 20 mg PO Q12H [facility] Last Admin: 10/11/18 09:01 Dose: 20 mg Magnesium Hydroxide (Milk Of Magnesia) 30 ml PO BID PRN PRN Reason: Constipation Miscellaneous Information (Remove Patch) 0 ea TRDERM DAILY [facility] Last Admin: 10/11/18 10:01 Dose: Not Given Morphine Sulfate (Morphine) 2 mg IVPUSH Q2H PRN PRN Reason: Breakthrough Pain Last Admin: 10/11/18 10:34 Dose: 2 mg Naloxone HCl (Narcan) 0.1 mg IVPUSH Q5M PRN PRN Reason: Oversedation Nicotine (Habitrol) 7 mg TRDERM DAILY [facility] Last Admin: 10/11/18 10:01 Dose: Not Given Ondansetron HCl (Zofran) 4 mg IVPUSH Q6H PRN PRN Reason: Nausea/Vomiting Oxycodone/Acetaminophen (Percocet 325-5 Mg) 1 - 2 tab PO Q4H PRN PRN Reason: Pain Last Admin: 10/11/18 10:01 Dose: 2 tab Senna (Senna) 8.6 mg PO BID PRN PRN Reason: Constipation Last Admin: 10/11/18 06:27 Dose: 8.6 mg Discontinued Medications Acetaminophen (Tylenol) 975 mg PO ONETIME [facility] Stop: 10/10/18 14:00 Acetaminophen (Tylenol) 975 mg PO ONETIME [facility] Stop: 10/10/18 14:00 Last Admin: 10/10/18 06:29 Dose: 975 mg Bupivacaine HCl (Sensorcaine-Mpf 0.75%) Confirm Administered Dose 30 ml .ROUTE .STK-MED ONE Stop: 10/10/18 06:03 Bupivacaine HCl (Marcaine 0.25%) Confirm Administered Dose 30 ml .ROUTE .STK- MED ONE Stop: 10/10/18 06:31 Last Admin: 10/10/18 08:14 Dose: 30 ml Bupivacaine HCl (Marcaine 0.5%) Confirm Administered Dose 30 ml .ROUTE .STK-MED ONE Stop: 10/10/18 07:20 Cefazolin Sodium (Ancef) Confirm Administered Dose 2 gm .ROUTE .STK-MED ONE Stop: 10/10/18 06:03 Last Admin: 10/10/18 08:09 Dose: 2 gm Cefazolin Sodium (Ancef) Confirm Administered Dose 2 gm .ROUTE .STK-MED ONE Stop: 10/10/18 06:34 Morphine Sulfate 8 mg/Epinephrine HCl 0.3 mg/Cefuroxime Sodium 750 mg/Ketorolac Tromethamine 30 mg/Sodium Chloride 27.9 ml 0 mg .XX ONETIME ONE Stop: 10/10/18 07:36 Last Admin: 10/10/18 08:13 Dose: 788.3 mg Diphenhydramine HCl (Benadryl) 25 mg IVPUSH Q6H PRN PRN Reason: pruritis Stop: 10/10/18 10:00 Ephedrine Sulfate (Ephedrine Sulfate) 5 mg IVPUSH ASDIRECTED PRN PRN Reason: Hypotension Stop: 10/10/18 10:00 Ephedrine Sulfate (Ephedrine In Ns) Confirm Administered Dose 25 mg .ROUTE .STK- MED ONE Stop: 10/10/18 07:57 Epinephrine HCl (Adrenalin) Confirm Administered Dose 1 mg .ROUTE .STK-MED ONE Stop: 10/10/18 05:33 Epinephrine HCl (Adrenalin) Confirm Administered Dose 1 mg .ROUTE .STK-MED ONE Stop: 10/10/18 07:19 Fentanyl (Sublimaze) Confirm Administered Dose 100 mcg .ROUTE .STK-MED ONE Stop: 10/10/18 06:03 Fentanyl (Sublimaze) 50 mcg IVPUSH Q5M PRN PRN Reason: Pain Stop: 10/10/18 10:00 Hydromorphone HCl (Dilaudid) 0.5 mg IVPUSH Q15M PRN PRN Reason: Pain (severe 7-10) Stop: 10/10/18 10:00 Lactated Ringer's (Ringers, Lactated) 1,000 mls @ 125 mls/hr IV ASDIRECTED [facility] Stop: 10/10/18 23:00 Last Admin: 10/10/18 11:43 Dose: 125 mls/hr Lidocaine HCl (Xylocaine-Mpf 1%) Confirm Administered Dose 14 mls @ as directed .ROUTE .STK-MED ONE Stop: 10/10/18 06:03 Cefazolin Sodium/Dextrose 2 gm (/ Premix) 50 mls @ 100 mls/hr IV Q8H [facility] Stop: 10/11/18 07:29 Last Admin: 10/11/18 06:24 Dose: 100 mls/hr Phenylephrine HCl 1 mg/ Sodium (Chloride) 10.1 mls @ 1 mls/sec IV TITRATE [facility]; Protocol Stop: 10/10/18 10:00 Lactated Ringer's (Ringers, Lactated) Confirm Administered Dose 1,000 mls @ as directed .ROUTE .STK-MED ONE Stop: 10/10/18 07:59 Iodine (Iodine 2% Mild Tincture) Confirm Administered Dose 30 ml .ROUTE .STK- MED ONE Stop: 10/10/18 06:31 Last Admin: 10/10/18 08:06 Dose: 18 ml Ketorolac Tromethamine (Toradol) Confirm Administered Dose 30 mg .ROUTE .STK- MED ONE Stop: 10/10/18 06:03 Ketorolac Tromethamine (Toradol) 15 mg IVPUSH Q6H PRN PRN Reason: Pain Last Admin: 10/11/18 05:26 Dose: 15 mg Ketorolac Tromethamine (Toradol) 15 mg IVPUSH ONETIME ONE Stop: 10/11/18 10:21 Last Admin: 10/11/18 10:34 Dose: 15 mg Lidocaine/Sodium Bicarbonate (Buffered Lidocaine 1% In Ns 8.4%) 0.25 ml IDERM ONETIME PRN PRN Reason: Prior to IV Start Stop: 10/10/18 18:00 Last Admin: 10/10/18 06:45 Dose: 0.25 ml Midazolam HCl (Versed 1 Mg/Ml) Confirm Administered Dose 2 mg .ROUTE .STK-MED ONE Stop: 10/10/18 06:04 Ondansetron HCl (Zofran) Confirm Administered Dose 4 mg .ROUTE .STK-MED ONE Stop: 10/10/18 06:03 Ondansetron HCl (Zofran) 4 mg IVPUSH ONETIME PRN PRN Reason: Nausea/Vomiting Stop: 10/10/18 10:00 Oxycodone HCl (Oxycontin) 10 mg PO ONETIME [facility] Stop: 10/10/18 14:00 Oxycodone HCl (Oxycontin) 10 mg PO ONETIME [facility] Stop: 10/10/18 14:00 Last Admin: 10/10/18 06:28 Dose: 10 mg Oxycodone HCl (Oxycodone) 5 mg PO ONETIME ONE Stop: 10/11/18 10:21 Last Admin: 10/11/18 10:33 Dose: 5 mg Phenylephrine HCl (Phenylephrine In Ns 100 Mcg/Ml) Confirm Administered Dose 1 mg .ROUTE .STK-MED ONE Stop: 10/10/18 07:32 Pregabalin (Lyrica) 50 mg PO ONETIME [facility] Stop: 10/10/18 14:00 Pregabalin (Lyrica) 50 mg PO ONETIME [facility] Stop: 10/10/18 14:00 Last Admin: 10/10/18 06:27 Dose: 50 mg Propofol (Diprivan 20 Ml) Confirm Administered Dose 400 mg .ROUTE .STK-MED ONE Stop: 10/10/18 06:03 Propofol (Diprivan 20 Ml) Confirm Administered Dose 200 mg .ROUTE .STK-MED ONE Stop: 10/10/18 07:44 Ropivacaine (Naropin 0.5%) Confirm Administered Dose 30 ml .ROUTE .STK-MED ONE Stop: 10/10/18 05:33 Ropivacaine (Naropin 0.5%) Confirm Administered Dose 30 ml .ROUTE .STK-MED ONE Stop: 10/10/18 07:20 Sodium Chloride (Saline Flush) 10 ml FLUSH ASDIRECTED PRN PRN Reason: Keep Vein Open Stop: 10/10/18 18:00 Tranexamic Acid (Cyklokapron) Confirm Administered Dose 1,000 mg .ROUTE .STK- MED ONE Stop: 10/10/18 06:30 Last Admin: 10/10/18 08:25 Dose: 1,000 mg Vancomycin HCl (Vancomycin) Confirm Administered Dose 1 gm .ROUTE .STK-MED ONE Stop: 10/10/18 06:30 Last Admin: 10/10/18 08:16 Dose: 1 gm
--- NOTE | 2018-10-17 06:57 | PCM.OPNOTE ---
- General Post-Op/Procedure Note Date of Surgery/Procedure: 10/10/18 Operative Procedure(s): left total knee arthroplasty Pre Op Diagnosis: left knee osteoarthrosis Post-Op Diagnosis: Same Anesthesia Technique: Local, MAC, Spinal Primary Surgeon: Junior Wilkinson Anesthesia Provider: [place]l [employer] Software Engineer: Sol Dubon [employer] Software Engineer: Michelle Adam EBL in mLs: 400 Complications: None Condition: Good Free Text/Narrative:: size / 9mm 32x10
--- NOTE | 2018-10-17 08:16 | OR ---
DATE OF OPERATION: 10/10/2018 SURGEON: Junior Wilkinson MD OPERATION PERFORMED: Left total knee arthroplasty. PREOPERATIVE DIAGNOSIS: Left knee osteoarthrosis. POSTOPERATIVE DIAGNOSIS: Left knee osteoarthrosis. ANESTHESIA: Local MAC with spinal. ANESTHESIA PROVIDER: [place]l CRNA. SUPERVISOR [employer]: Sol Dubon PA-C, and Michelle Adam LPN ESTIMATED BLOOD LOSS: 400 mL. COMPLICATIONS: None. CONDITION: Stable. IMPLANTS: 1. [place] size 6 press-fit CR femur. 2. Efe size 6 press-fit tibial base plate. 3. [place] size 6, 9 mm CS polyethylene insert. 4. [place] size 32 x 10 mm press fit patella. DESCRIPTION OF PROCEDURE: The patient was identified in the preop holding area. Proper site was marked and identified by the surgeon. The patient was taken back to the operating theater. After adequate anesthesia, the patient's left lower extremity had a nonsterile tourniquet applied and it was sterilely prepped and draped in the usual sterile fashion. OR time-out was performed. The patient received 2 g IV Ancef. At this time, the left lower extremity was exsanguinated. Tourniquet was insufflated to 300 mmHg. Standard medial parapatellar incision was made. Medial parapatellar arthrotomy was created. Deep fibers of the MCL were raised and anterior fat pad was resected. At this time, attention was turned to the patella. Patella measured 24, it was resected to a 14 for 32 x 10 mm patella. Drill holes were then drilled and found to be in adequate position. The drill was then drilled in the distal femur and the intramedullary distal femoral cutting guide was then placed. 8 mm was resected off the distal femur and was found to be an adequate resection. Sizing guide was placed. It was found to be a size 6 press-fit CR femur that was shown on the implant record at the beginning of this dictation. The drill holes were drilled for the epicondylar axis using [place] line and epicondyles as reference. At this time, the 4-in - 1 cutting block was placed. An anterior posterior and anterior and posterior chamfer cuts were then completed. Attention was turned to the tibia. The posterior medial lateral retractors were placed. The extramedullary tibial guide was placed. It was placed in the old footprint of the ACL. It was aligned with the center of the ankle and 0 degrees of slope, 9 mm was then resected off the unaffected side. There was found to be an acceptable reduction. At this time, posterior osteophytes were removed along with medial and lateral meniscus. A trial implant was placed with a correct sized tibia that was mentioned at the beginning of the dictation. A [place] size 6, 9 mm CS polyethylene insert was then placed. The patient's knee was brought through range of motion. The patella was tracking centrally and was stable to varus and valgus stress. Alignment was found to be roughly at 0 degrees. The tibia was stamped and drilled in proper rotation. The universal tibial base plate was impacted in place. Next, the [place] size 6 press-fit CR femur impacted into place and the [place] size 6, 9 mm CS polyethylene insert was placed. The patient's knee was brought into full extension. The patella was then press-fit in place at this time. Tourniquet was deflated. One liter dilute Betadine solution was irrigated through the knee along with 3 L of pulse lavage irrigation with Ancef. Periarticular injection was then completed. The patient's knee was brought through a range of motion. Knee was found to be stable to varus valgus stress, the patella was tracking centrally with full range of motion. At this time, a #2 barbed suture was used for closure of the medial parapatellar arthrotomy. Topical tranexamic acid was placed. 2-0 Vicryl was used subcutaneously, Prineo was used for the skin. The patient tolerated the procedure well and was sent to the PACU in stable condition. ANAY /[id number]
== END 2018-10-11 15:20 | disposition home or self-care (01) | DRG 302 ==
LOC: JD.MS 05:59 → EDSTATUS 13:30
PROVIDERS: ADMIT Orthopaedic Surgery; ATTEND Orthopaedic Surgery
PROC: 3E0T3BZ Introduction of Anesthetic Agent into Peripheral Nerves and Plexi, Percutaneous Approach (ICD-10-PCS; principal; 2018-10-10)
PROC: 0SRD06Z Replacement of Left Knee Joint with Oxidized Zirconium on Polyethylene Synthetic Substitute, Open Approach (ICD-10-PCS; 2018-10-10)
DX: M17.12 Unilateral primary osteoarthritis, left knee (principal); K21.9 Gastro-esophageal reflux disease without esophagitis; F17.210 Nicotine dependence, cigarettes, uncomplicated; G89.18 Other acute postprocedural pain; M54.5 Low back pain; Z79.899 Other long term (current) drug therapy; Z79.82 Long term (current) use of aspirin
CPT/HCPCS: 01402; 36415; 64450; 73560-26-LT; 73560-LT; 80053; 85027; 87641; 97110-GP; 97116-GP; 97161-GP; 97165-GO; 97535-GO; A9270-GY; C1776; J0171; J0690; J0697; J1885; J2001; J2250; J2270; J2370; J2405; J2704; J2795; J3010; J3370; J3490; J7050; J7120